=== PATIENT | male | born 1980 | race Two or more races ===

== ENCOUNTER 2018-03-31 00:05 | Emergency (ER) | payer OTHER ==
[~2018-03-31] VITALS: Ht 175.3 cm; Wt 124.7 kg
--- NOTE | 2018-03-31 00:17 | NUR ---
PT IN BED. PT ARRIVED VIA EMS IN [employer]USTODY. PT COMPLAINED OF LEG PAIN AFTER BEING ARRESTED. PT IS A&OX4. PT IS CALM AND COOPERATIVE. NO SIGNS OF DISTRESS WITNESSED AT THIS TIME.
--- NOTE | 2018-03-31 00:22 | NUR ---
PT CLEARED TO BOOK BY MD ESTEVES. PT LEFT IN [employer] CUSTODY W/ OFFICERS BELÉN (#[id number]) AND KARENA (#[id number]).
[2018-03-31 00:26] VITALS: BP 142/88
== END 2018-03-31 00:22 ==
LOC: ER 00:10
DX: Z00.00 Encounter for general adult medical examination without abnormal findings (principal); Z88.0 Allergy status to penicillin
CPT/HCPCS: A4663